=== PATIENT | female | born 1965 | race Caucasian/White ===

== ENCOUNTER → 2017-03-18 | Outpatient (CLI) | payer BC | END | disposition home or self-care (01) | LOC: C.PAPS 09:26 | PROVIDERS: ATTEND Physician Assistant | DX: Z01.419 Encounter for gynecological examination (general) (routine) without abnormal findings (principal) ==

== ENCOUNTER → 2017-03-25 | Outpatient (CLI) | payer BC ==
--- NOTE | 2017-03-25 16:00 | MAMMOGRAPHY REPORT ---
BILATERAL DIGITAL DIAGNOSTIC MAMMOGRAM TOMOSYNTHESIS WITH CAD AND TARGETED LEFT ULTRASOUND: 03/25/2017 CLINICAL HISTORY: The patient reports that her clinician felt a palpable lump in the left 6:00 breast during a breast exam. The patient reports a history of multiple prior cysts. TECHNIQUE: Breast tomosynthesis in addition to standard 2D mammography was performed. Current study was also evaluated with a Computer Aided Detection (CAD) system. Bilateral CC and MLO 2-D and tomosy nthesis images were obtained. COMPARISON: Comparison is made to exams dated: 03/13/2016 mammogram - [facility], mammogram, 06/22/2012 mammogram, 11/26/2010 mammogram, and 03/27/2009 mammogram - [facility]. BREAST COMPOSITION: The tissue of both breasts is heterogeneously dense, which may obscure small mas ses. FINDINGS: A triangle marker umana the site of the palpable lump in the left 6:00 breast; there is no suspicious mass or other suspicious mammographic abnormality in this region. Again noted are multip le bilateral fluctuating round/oval circumscribed benign-appearing masses, consistent with fluctuatin g cysts. Scattered bilateral benign-appearing calcifications are not significantly changed. There a re stable postsurgical changes in the right anterior breast from prior excisional biopsy. Targeted ultrasound was performed of the left 6:00 breast in the region of the palpable lump. There are numerous round/oval circumscribed anechoic masses consistent with cysts. The largest is seen in the left breast at 6:00, 3 cm from the nipple, there is an oval anechoic circumscribed mass with mobi le internal debris which measures 2.3 x 1.4 x 2.3 cm, consistent with a benign cyst. Other smaller a nechoic masses are noted in the left 6 and 6:30 breast. In the left 6:30 breast, 3 cm from the nippl e, there is an oval hypoechoic circumscribed mass measuring 1.3 x 1.5 cm, which appears similar to th e prior ultrasound exam dated 09/21/2014 and is benign and felt to represent a complicated cyst. No s uspicious masses are noted within the left 6:00 breast. IMPRESSION: ACR BI-RADS CATEGORY 2: BENIGN, TARGETED ULTRASOUND ACR BI-RADS CATEGORY 2: BENIGN Multiple benign cysts seen within the left 6:00 breast; it is unclear which of these may correspond w ith the palpable lump felt by the patient's clinician. Multiple fluctuating cysts are again noted th roughout bilateral breasts mammographically. There is no mammographic or targeted sonographic eviden ce of malignancy. Recommend clinical follow-up for the left breast palpable lump. A 1 year screenin g mammogram is recommended. The patient has been verbally notified of the results. Approximately 10% of breast cancers are not detected with mammography. A negative mammographic report should not delay biopsy if a clinically suggestive mass is present. Rosa Keith M.D. ah/:03/25/2017 14:46:28 Lcac Radar Operator/Navigator: Jessica PONCE(Cliff)(M), [facility] letter sent: Normal 1/2 BI-RADS Code: ACR BI-RADS Category 2: Benign Ultrasound BI-RADS: ACR BI-RADS Category 2: Benign
== END | disposition home or self-care (01) ==
LOC: C.MAMM 12:52
PROVIDERS: ATTEND Physician Assistant
DX: N63 Unspecified lump in breast (principal); N60.01 Solitary cyst of right breast; N60.02 Solitary cyst of left breast

== ENCOUNTER → 2017-04-27 | Outpatient (CLI) | payer BC ==
--- NOTE | 2017-04-27 07:30 | DIAGNOSTIC IMAGING REPORT ---
ABDOMINAL ULTRASOUND, RIGHT UPPER QUADRANT HISTORY: Right upper quadrant abdominal tenderness.. COMPARISON: None. FINDINGS: Pancreas: The pancreas demonstrates a normal echotexture. Liver: The liver is echogenic consistent with fatty change. 15 cm in length. Small area of focal fatty sparing adjacent to the gallbladder fossa. Gallbladder: No gallbladder wall thickening. No gallstones. CBD: 6 mm. Right kidney: No hydronephrosis. Lower pole is partially obscured by overlying bowel gas. IMPRESSION: 1. Normal gallbladder. No gallstones. 2. Hepatic steatosis. Electronically signed by: Hilario Pagan M.D. 04/27/2017 7:29 AM Dictated Date/Time: 04/27/2017 7:28 AM
== END | disposition home or self-care (01) ==
LOC: C.ULTR 06:24
PROVIDERS: ATTEND Physician Assistant
DX: R10.811 Right upper quadrant abdominal tenderness (principal); M89.8X1 Other specified disorders of bone, shoulder; R11.0 Nausea; K76.0 Fatty (change of) liver, not elsewhere classified

== ENCOUNTER 2019-03-13 08:02 | Observation (INO) ==
--- NOTE | 2019-02-10 15:27 | PAT Medication Instructions ---
Medication Instructions Date of Service February 10, 2019 Home Medications ezetimibe-simvastatin 1 tab PO QPM potassium chloride 20 meq PO BID quinapril-hydrochlorothiazide 1 tab PO QAM DO NOT take the morning of surgery potassium chloride 20 meq PO BID quinapril-hydrochlorothiazide 1 tab PO QAM Take evening before surgery ezetimibe-simvastatin 1 tab PO QPM potassium chloride 20 meq PO BID Other Notes If you have any questions please call us at [phone] or [phone] or [phone] or [phone]
--- NOTE | 2019-02-13 15:31 | Anesthesiology Consultation ---
Date of Service February 13, 2019 Assessment & Plan (1) Encounter for pre-operative examination: - Anemia: HGB 8.3 on preop labs (previously 9.1 at 11/2018 ER visit) in setting of significant menorrhagia/abnormal uterine bleeding/significant uterine thickening; reason for upcoming hysterectomy. [facility] (Dr. Javier) placed order for blood work (hemoglobinopathy + iron) as patient stated ? hx thalassemia. Had followup blood work 02/14/19: consistent with beta-thalassemia trait and iron deficient. Also, hemoglobin decreased to 8.1. Per surgeon office, labs reviewed by Dr. Javier and nothing further at this time, will await return of Dr. Smallwood on 02/[address] Smallwood reviewed worsening anemia. Recommends iron supplementation and nothing further prior to surgery except will recheck CBC AM DOS. OR notified to have patient come in early for labs. - Check CBC, test AM DOS Chart Review Chart Review: Acceptable Risk for Surgery and Patient seen in Pre Admission T esting Teaching & Discussion Pre-Anesthesia Teaching/Discussion Notes: Instructed NPO after midnight before surgery,except medications with 15 cc of water. Medication instructions provided according to the PAT guidelines. History Surgery Operation Date: 03/13/19 09:50 Proposed Procedures p Robotic Total Laparoscopic Hysterectomy - Aurora Smallwood MD, FACOG Height/Weight Height: 5 ft 1 in Weight: 61.8 kg Allergies Allergy/AdvReac Type Severity Reaction Status Date / Time No Known Allergies Allergy Unverified 02/02/19 15:03 Medications Home Medications Medication Instructions Recorded Confirmed Last Taken ezetimibe-simvastatin 1 tab PO QPM 12/17/18 02/02/19 02/01/19 potassium chloride 20 meq PO BID 12/17/18 02/02/19 02/02/19 quinapril-hydrochlorothiazide 1 tab PO QAM 12/17/18 02/02/19 02/02/19 Past Medical History Medical History Abnormal uterine bleeding Anemia HGB PREVIOUSLY IN THE 9 RANGE HTN (hypertension) High cholesterol Menorrhagia Exercise / Class Metabolic Activity II 4-5 Yardwork/Stairs/Walk up hill Past Surgical History Surgical History History of colonoscopy History of lumpectomy of right breast Past Anesthesia History No Hx of Anesthesia Complications and No Family Hx of Anesthesia Complications History of PONV No Hx of PONV and No Hx of Motion Sickness Social History Smoking Status: Never smoker Do You Dip or Chew Tobacco: No Hx Alcohol Use: Yes Alcohol type: wine alcohol intake frequency: a few times a month Hx Substance Use: No substance use type: does not use Review of Systems Patient denies chest pain, shortness of breath, dyspnea on exertion, reflux, cou gh, wheezing, palpitations. Physical Exam Vital Signs VITALS BP 118/79 P 73 TEMP 98.7 SP02 98%RA RESP 16 PHYSICAL Full neck and c-spine range of motion. Full TMJ range of motion. TMD 3 finger breaths Mallampati Score 2 Dentition: upper partial Lungs: clear throughout to auscultation Cardiac: regular rate and rhythm, no murmurs noted Spine: normal Carotid arteries: negative bruit Extremities: no edema Testing Laboratory Results 02/13/19 15:47 02/13/19 15:47 Blood Type A Positive 02/13/19 15:47 Antibody Screen NEGATIVE 02/13/19 15:47 02/14/19 H/H 8.1/30.9 Serum transferrin 414H Iron 25L Hemoglobinopathy electrophoresis consistent with beta thalassemia. Electrocardiogram Date: 02/13/19 Findings: + NSR @ ()
[2019-02-13 16:19] LABS: BUN Creatinine Ratio 17.2 (10-20); Calcium 9.7 mg/dl (8.5-10.1); Creatinine Clr Calc Pharmacy 73.4 ml/min; Est GFR (African American) 107.5; Est GFR (Non-African American) 92.7; Potassium 3.8 mmol/L (3.5-5.1)
[2019-02-13 16:36] LABS: Anisocytosis Present; Basophils # (auto) 0.08 K/uL (0-0.2); Basophils % (auto) 1.3 %; Eosinophils # (auto) 0.11 K/uL (0-0.5); Eosinophils % (auto) 1.8 %; Hematocrit (blood only) 28.7 % (37-47); Hemoglobin 8.3 g/dL (12.0-16.0); Hypochromasia Present; Immature Granulocytes # (auto) 0.01 K/uL (0.00-0.02); Immature Granulocytes % (auto) 0.2 %; Lymphocytes # (auto) 2.24 K/uL (1.2-3.4); Mean Corpuscular Hgb Conc 28.9 g/dL (32-36); Mean Corpuscular Volume 57.6 fL (80-100); Microcytosis Present; Monocytes # (auto) 0.43 K/uL (0.11-0.59); Monocytes % (auto) 6.9 %; Neutrophils # (auto) 3.36 K/uL (1.4-6.5); Neutrophils % (auto) 53.8 %; Ovalocytes 1+; Platelet Count 277 K/uL (130-400); Polychromasia 1+; RDW Coefficient of Variation 16.8 % (11.5-14.5); Red Blood Count 4.98 M/uL (4.2-5.4); Tear Drop Cells 1+; White Blood Count 6.23 K/uL (4.8-10.8)
[~2019-03-13 08:02] MED LIST: ACETAMINOPHEN 1000 MG/100 ML IV IV ONE; CEFAZOLIN 2000MG 2,000 MG/15 ML SYR IV SCH; LACTATED RINGER'S 1,000 ML IV SCH; LR 15ML/HR IV SCH; LR 500ML BOLUS, THEN 15ML/HR IV SCH; PHENAZOPYRIDINE HCL 200 MG TAB PO SCH
[2019-03-13] MEDS ORDERED: fentaNYL citrate 100 MCG/2 ML VIAL ONE ×2 (08:22→13:39)
[2019-03-13] MEDS ORDERED: PROPOFOL IV EMULSION 10 MG/ML 20 ML VIAL IV ONE (08:22)
[2019-03-13] MEDS ORDERED: ROCURONIUM BROMIDE 10 MG/ML 5 ML VIAL ONE ×6 (08:22→12:52)
[2019-03-13] MEDS ORDERED: LIDOCAINE HCL 2% 2 ML VIAL/AMP(20MG/ML) INFIL ONE (08:22)
[2019-03-13] MEDS ORDERED: ONDANSETRON INJ 2 MG/ML 2 ML VIAL ONE (08:22)
[2019-03-13] MEDS ORDERED: MIDAZOLAM HCL 1 MG/ML 2ML VIAL ONE (08:22)
[2019-03-13] MEDS ORDERED: DEXAMETHASONE SOD INJ 4 MG/ML VIAL ONE (08:22)
[2019-03-13 08:56] LABS: Basophilic Stippling 1+; Basophils # (auto) 0.04 K/uL (0-0.2); Basophils % (auto) 0.6 %; Eosinophils # (auto) 0.16 K/uL (0-0.5); Eosinophils % (auto) 2.4 %; Hematocrit (blood only) 32.5 % (37-47); Hemoglobin 9.4 g/dL (12.0-16.0); Hypochromasia Present; Immature Granulocytes # (auto) 0.01 K/uL (0.00-0.02); Immature Granulocytes % (auto) 0.1 %; Lymphocytes # (auto) 1.63 K/uL (1.2-3.4); Lymphocytes % (auto) 24.2 %; Mean Corpuscular Hgb Conc 28.9 g/dL (32-36); Mean Corpuscular Volume 56.8 fL (80-100); Microcytosis Present; Monocytes # (auto) 0.33 K/uL (0.11-0.59); Monocytes % (auto) 4.9 %; Neutrophils # (auto) 4.57 K/uL (1.4-6.5); Neutrophils % (auto) 67.8 %; Platelet Count 297 K/uL (130-400); RDW Coefficient of Variation 21.8 % (11.5-14.5); RDW Standard Deviation 41.5 fL (36.4-46.3); Red Blood Count 5.72 M/uL (4.2-5.4); Schistocytes 1+; Tear Drop Cells 1+; White Blood Count 6.74 K/uL (4.8-10.8)
[2019-03-13] MEDS ORDERED: ATROPINE SULFATE 0.1 MG/ML 10ML SYR IV PRN ×2 (10:49→12:27)
[2019-03-13] MEDS ORDERED: ePHEDrine sulfate 50 MG/ML AMP IV PRN ×2 (10:49→12:27)
[2019-03-13] MEDS ORDERED: HYDROmorphone INJ 2 MG/ML SYR/VIAL IV PRN ×2 (10:49→12:27)
--- NOTE | 2019-03-13 11:03 | History & Physical Bridge Note ---
Date of Service March 13, 2019 History & Physical Bridge Note I have examined the patient, reviewed the History & Physical and in the interval since the performance of the History & Physical I have noted the following changes of clinical significance: no changes noted Reviewed pt hemoglobin.
[2019-03-13] MEDS ORDERED: BUPIVACAINE 0.5 % 5 MG/1 ML MPF 30ML VIAL ONE (11:24)
[2019-03-13] MEDS ORDERED: GLYCOPYRROLATE 0.2 MG/ML VIAL ONE (12:19)
[2019-03-13] MEDS ORDERED: NEOSTIGMINE METHYLSULFATE 5 MG/5 ML SYR ONE (12:19)
[2019-03-13] MEDS ORDERED: KETOROLAC 30 MG/ML VIAL ONE (12:39)
[2019-03-13] MEDS ORDERED: SIMETHICONE 80 MG CHEW PO PRN (13:37)
[2019-03-13] MEDS ORDERED: OXYCODONE/ACETAMINOPHEN 5mg/325mg TAB PO PRN ×2 (13:37)
[2019-03-13] MEDS ORDERED: ACETAMINOPHEN 325 MG TAB PO PRN (13:37)
[2019-03-13] MEDS ORDERED: KETOROLAC 30 MG/ML VIAL IV PRN (13:37)
[2019-03-13] MEDS ORDERED: IBUPROFEN 600 MG TAB PO PRN (13:37)
[2019-03-13] MEDS ORDERED: ZOLPIDEM TARTRATE 5 MG TAB PO PRN (13:37)
[2019-03-13] MEDS ORDERED: ONDANSETRON INJ 2 MG/ML 2 ML VIAL IV PRN (13:37)
--- NOTE | 2019-03-13 13:37 | Post Operative Brief Note ---
Immediate Post Op Note v1 Date of Surgery March 13, 2019 Pre & Post Diagnosis Operation Date: 03/13/19 10:20 Pre-Op Diagnosis: abnormal perimenopausal bleeding, mmr, anemia, abnormal ultrasound of uterus Post-Op Diagnosis: same Procedure Operation Date: 03/13/19 10:20 Actual Procedures p Robotic Total Laparoscopic Hysterectomy with bilateral salpingectomies, cystoscopy(Not Applicable) - Aurora Smallwood MD, FACOG Surgeon Aurora Smallwood MD, FACOG Product Applications Scientist Yamil Estimated Blood Loss 20 Findings Consistent with Post-Op Diagnosis (uterus enlarged about 10wk size. normal ovaries and tubes bilaterally. nl liver edge. Cystoscopy findings with normal bladder filling and normal ureteral jets.) Fluids 1300 Specimens cervix, uterus, bilateral fallopian tubes. Drains Gonzales Catheter Anesthesia Type General Complications none Disposition Accompanied Patient To Recovery: No Disposition: Recovery Room
[2019-03-13] MEDS ORDERED: LACTATED RINGER'S 1,000 ML IV SCH (13:45)
--- NOTE | 2019-03-13 14:27 | Anesthesiology Progress Note ---
Date of Service March 13, 2019 Anesthesia Post Procedure Vital Signs Vital Signs: Temp Pulse Pulse Resp BP BP Pulse Ox 03/13/19 14:25 37.3 C 55 L 12 136/76 97 03/13/19 14:15 54 L 12 137/75 94 03/13/19 14:05 55 L 11 L 137/75 94 03/13/19 13:55 59 L 11 L 124/75 93 03/13/19 13:49 36.9 C 65 16 128/79 100 03/13/19 08:32 36.8 C 67 16 122/82 95 Transfer of Care Handoff Completed per policy Notes Mental Status: alert / awake / arousable Patient Amnestic to Procedure: Yes Nausea / Vomiting: adequately controlled Pain: adequately controlled Airway Patency, RR, SpO2: stable & adequate BP & HR: stable & adequate Hydration State: stable & adequate Anesthetic Complications: no major complications apparent and Pt Satisfied with anesthetic care
--- NOTE | 2019-03-13 15:28 | Operative Report ---
DATE OF OPERATION: 03/13/2019 PREOPERATIVE DIAGNOSES: 1. Abnormal perimenopausal bleeding. 2. Abnormal ultrasound findings of the uterus. 3. Anemia. 4. Menometrorrhagia. POSTOPERATIVE DIAGNOSES: 1. Abnormal perimenopausal bleeding. 2. Abnormal ultrasound findings of the uterus. 3. Anemia. 4. Menometrorrhagia. PROCEDURES: 1. Total laparoscopic hysterectomy. 2. Bilateral salpingectomies. 3. Cystoscopy. 4. Robotic assistance. SURGEON: Aurora Smallwood MD PLAYGROUND DIRECTOR: Viktoriya Lobo, INTRAVENOUS FLUIDS: 1300 mL. ESTIMATED BLOOD LOSS: 20 mL. ANESTHESIA: General. FINDINGS: Uterus enlarged, approximately 10-week size with normal tubes and ovaries bilaterally. Normal liver edge. Cystoscopy findings with normal bladder filling and normal ureteral jets. INDICATIONS: A 54-year-old with a history of menometrorrhagia to anemia in the perimenopause. She had ultrasound findings that were concerning for endometrial polyps. She desired definitive surgical therapy. Please review the history and physical for full details. DESCRIPTION OF PROCEDURE: The patient was taken to the operating room and identified. After adequate anesthesia was obtained, she was placed in the dorsal lithotomy position. She was prepped and draped in usual sterile fashion. A weighted speculum and anterior retractor were used to visualize the cervix which was grasped in its anterior lip with an Allis clamp. A Gonzales catheter had been placed under sterile conditions. The cervix was tight with a single interrupted suture of 0 Vicryl at 3 o'clock position. The uterus was sounded to 10 cm. The VCare uterine manipulator device was gently placed through the cervical os into the uterine cavity and the devices balloon was inflated. The suture material was used to tie down the cup and the stabilizing cup was also placed. This was after the Allis clamp was removed. All the retractors were removed. Attention was then turned to the patient's abdomen where a supraumbilical skin incision was made with the scalpel. The Veress needle was placed intraperitoneally with an opening pressure of 3 mmHg. A CO2 pneumoperitoneum was created. The 12 mm optical trocar was placed under direct visualization using the camera into the peritoneal cavity. The patient was then placed in steep Trendelenburg. Da Rashad trocar sites were created at left and right of the midline by first creating skin incisions and placing under direct visualization of da Rashad trocars. The bowel was teased away from the planned operative field. The da Rashad robot was then brought to the patient's bedside. The appropriate instruments were attached to the appropriate trocars. The camera was introduced. The monopolar jd was introduced through instrument arm #1 and the fenestrated bipolar through instrument arm #2. The surgeon then went to the console. With manipulation from below, the right ureter was seen coursing well below the planned operative site on the right side. The fallopian tube was dissected using monopolar jd as well as by fenestrated bipolar cautery. The uteroovarian ligament was then coagulated and cut. The round ligament was also doubly coagulated and then cut. The remaining broad ligament attachments on this side were further taken down with sequential coagulation and transection. The anterior and posterior leaves of the broad ligament were opened up into and the bladder flap was begun from the right side towards the midline. The uterine artery pedicle was skeletonized. The vessels were coagulated using the fenestrated bipolar. Attention was then turned to the left fallopian tube. The ureter was not as well seen on this side; however, suspected to be coursing below the operative site. The fallopian tube was elevated and then transected in the mesosalpinx. The fimbriated end was coagulated and transected and the uteroovarian ligament was then coagulated and transected. The round ligament on this side was elevated and coagulated and transected. The remaining uterine ovarian ligament tissue was further coagulated and transected and the anterior and posterior leaves of the broad ligament were opened up into on the left side. The bladder flap was continued from the left side towards the right side and the bladder was pushed well away from the planned operative site. The uterine artery pedicle was then skeletonized. The uterine artery was then coagulated. It was then transected and the cardinal ligament attachments were further coagulated and transected. Attention was returned to the right uterine artery pedicle, which was also recoagulated and then transected and the cardinal ligament attachments were coagulated and transected. The anterior colpotomy site was cleared of any bladder fibers using coagulation and blunt dissection. At this point, the decision was made to create the colpotomy. This was begun from the posterior aspect and carried around circumferentially until the specimen was completely detached from the upper vagina. The specimen was then brought out vaginally and completely. The #1 instrument arm was exchanged with a large needle jinrikisha driver and the 2-0 V-Loc 90 suture was introduced vaginally. The cuff was closed in the usual fashion using the suture material and back stitches were placed. The suture material was then cut. The remaining bleeding sites were coagulated using the bipolar cautery. The needle had been removed through instrument arm #1 and that arm was undocked and the suction tariff clerk was brought through in order to irrigate the pelvis and assessed for hemostasis. Hemostasis was adequate. The patient was taken preoperative Pyridium. The instruments were removed from the patient's abdomen and the robotic arms were undocked. The robot was kept at the bedside while the cystoscopy took place. The cystoscopy was normal with the findings as noted above and a new Gonzales catheter was placed after the cystoscopy. Attention was returned to the patient's abdomen where the da Rashad robot was moved away from the patient's bedside. The CO2 gas was allowed to escape from her abdomen and the trocars were removed. The fascia was reapproximated at the supraumbilical incision site with a single interrupted suture of 0 Vicryl. The incisions were injected with Marcaine and the skin incisions were closed in a subcuticular fashion with 4-0 Vicryl. The patient was returned to supine position. She was awoken from anesthesia and transferred to the recovery room in stable condition. All sponge, lap and needle counts were correct x2. I attest to the content of the Intraoperative Record and any orders documented therein. Any exception s are noted below.
--- NOTE | 2019-03-14 10:55 | Discharge Summary ---
Date of Service March 14, 2019 Admission HPI Per Admitting Provider Day of Admission: 03/13/19 Day of Discharge: 03/13/19 Admission diagnosis: Abnormal perimenopausal bleeding, Menometrorrhagia, Anemia, Abnormal ultrasound findings. Discharge diagnosis: same Procedures: Total Laparoscopic Hysterectomy, Bilateral Salpingectomies, Cystoscopy, Robotic assistance Brief History and Course: 54yo with heavy and irregular bleeding, causing anemia who desired definitive surgical therapy. Aware of her options for management and desired hysterectomy. See full H&P for details. She underwent the above stated procedures without incident. She had an estimated blood loss of 20cc. She was able to eat, ambulate and void on her postoperative day 0 and her pain was well controlled on oral medications. She was stable for discharge to home. Her instructions were reviewed and given. A script for narcotic pain medications was sent to her pharmacy after checking on the [place] PDMP and no issues were identified. She will followup in office for check up in 2weeks. Discharge Data Procedures Performed Operation Date: 03/13/19 10:20 Actual Procedures p Robotic Total Laparoscopic Hysterectomy with bilateral salpingectomy, (Not Applicable) - Aurora Smallwood MD, FACOG s Cystoscopy(Not Applicable) - Aurora Smallwood MD, FACOG
== END 2019-03-13 21:50 | disposition home or self-care (01) ==
LOC: 4N 08:02 → ASU 08:02